=== PATIENT | male | born 1970 | race Caucasian/White ===

== ENCOUNTER 2023-08-10 12:25 | Emergency (ER) | payer OTHER ==
[~2023-08-10] VITALS: Ht 167.6 cm; Wt 75.7 kg
[~2023-08-10 12:25] MED LIST: CYCL-1 PO
--- NOTE | 2023-08-10 14:39 | NUR ---
pt has visible swelling and redness to left lower extremity. Pt seems in a bit of distress temp is 98.9 and ssumed infections seems to be spreading per
[2023-08-10] MEDS ORDERED: ketorolac trometh. 30mg/ml inj. IV ONE (14:45)
[2023-08-10] MEDS ORDERED: CefTRIAXone/D5W-Rocephin 1gm 50 ML IV ONE (14:45)
[2023-08-10] MEDS ORDERED: AMOX-117 PO (15:26)
[2023-08-10] MEDS ORDERED: IBUP-1984 PO (15:26)
[2023-08-10 15:30] VITALS: BP 110/77; PULSE 100; O2SAT 93
[2023-08-10 16:07] VITALS: RESP 15
[2023-08-10 17:19] VITALS: TEMP 99
== END 2023-08-10 17:21 | disposition home or self-care (01) ==
LOC: ER 12:26
DX: L03.116 Cellulitis of left lower limb (principal); F17.200 Nicotine dependence, unspecified, uncomplicated; Z79.2 Long term (current) use of antibiotics; Z79.899 Other long term (current) drug therapy
CPT/HCPCS: 96374; 96375; 99284; J0696; J1885; A4565

== ENCOUNTER 2023-12-04 09:24 | Emergency (ER) | payer OTHER ==
[~2023-12-04] VITALS: Ht 165.1 cm; Wt 78.6 kg
[2023-12-04 09:25] VITALS: BP 148/91; PULSE 78; TEMP 97.9; O2SAT 99
[2023-12-04 12:23] VITALS: RESP 18
[2023-12-04] MEDS: HYDROcodone/acetaminophen 10/325mg tab PO ONE (12:23)
[2023-12-04] MEDS: CefTRIAXone 1000mg IM Kit (w/lidocaine diluent) IM ONE (12:25)
[2023-12-04] MEDS ORDERED: HYDR-3973 PO (12:39)
[2023-12-04] MEDS ORDERED: SULF1TAB49 PO (12:39)
[2023-12-04] MEDS ORDERED: CEPH-585 PO (12:39)
[2023-12-04] MEDS ORDERED: TRAM50TA2 PO (19:29)
== END 2023-12-04 12:51 | disposition home or self-care (01) ==
LOC: ER 09:25
DX: J34.0 Abscess, furuncle and carbuncle of nose (principal); Z79.899 Other long term (current) drug therapy
CPT/HCPCS: 96372; 99283; J0696

== ENCOUNTER 2023-12-05 23:17 | Emergency (ER) | payer OTHER ==
[~2023-12-05] VITALS: Ht 167.6 cm; Wt 72.0 kg
[~2023-12-05 23:17] MED LIST changes: +CEPH-585 PO; +HYDR-3973 PO; +SULF1TAB49 PO; +TRAM50TA2 PO
[2023-12-06] MEDS: LORazepam 1 MG tablet PO ONE (03:39)
[2023-12-06] MEDS: mupirocin 2% nasal ointment 1gm UD NS SCH (03:39)
[2023-12-06] MEDS: HYDROcodone/acetaminophen 10/325mg tab PO ONE (03:40)
[2023-12-06] MEDS: LIDOcaine 1% W/epiNEPHrine 1:100,000 20ml vial IJ ONE (03:40)
[2023-12-06] MEDS ORDERED: HYDR-3965 PO (05:36)
[2023-12-06] MEDS ORDERED: MUPI22OI30 TOP (05:36)
[2023-12-06 05:57] VITALS: BP 142/86; PULSE 89; RESP 17; TEMP 98.4; O2SAT 99
== END 2023-12-06 06:05 | disposition home or self-care (01) ==
LOC: ER 23:17
DX: J34.0 Abscess, furuncle and carbuncle of nose (principal); Z79.899 Other long term (current) drug therapy; Z79.2 Long term (current) use of antibiotics
CPT/HCPCS: 10060; 99284; J3490

== ENCOUNTER 2024-03-22 23:05 | Emergency (ER) | payer OTHER ==
[~2024-03-22] VITALS: Ht 172.7 cm; Wt 71.0 kg
[~2024-03-22 23:05] MED LIST changes: -CEPH-585 PO; -HYDR-3973 PO; -SULF1TAB49 PO; -TRAM50TA2 PO
[2024-03-23] MEDS ORDERED: HYDR-3965 PO (01:21)
[2024-03-23] MEDS ORDERED: PRED20TA PO (01:21)
[2024-03-23] MEDS: HYDROcodone/acetaminophen 5mg/325mg tablet PO ONE (01:35)
[2024-03-23] MEDS: ketorolac trometh. 30mg/ml inj. IM ONE (01:36)
[2024-03-23 01:55] VITALS: BP 142/90; PULSE 82; RESP 16; TEMP 98; O2SAT 98
== END 2024-03-23 01:59 | disposition home or self-care (01) ==
LOC: ER 23:06
DX: M25.551 Pain in right hip (principal); F17.200 Nicotine dependence, unspecified, uncomplicated; Z79.899 Other long term (current) drug therapy
CPT/HCPCS: 96372; 99283; J1885